=== PATIENT | male | born 1970 | race Caucasian/White ===

== ENCOUNTER 2017-06-13 05:05 | Emergency (ER) | payer OTHER ==
[~2017-06-13] VITALS: Ht 175.3 cm; Wt 81.8 kg
[2017-06-13] MEDS ORDERED: GABA-531 PO (05:11)
[2017-06-13] MEDS ORDERED: KETOROLAC TROMETHAMINE 60 MG/2 ML VIAL IM ONE (06:30)
[2017-06-13] MEDS ORDERED: CYCLOBENZAPRINE HCL 10 MG TABLET PO ONE (06:30)
[2017-06-13 07:20] LABS: APPEARANCE,URINE CLEAR (CLEAR); GLUCOSE, URINE (UA) NEGATIVE (NEGATIVE); KETONES,URINE 40 mg/dL (NEGATIVE); LEUKOCYTE ESTERASE ,URINE NEGATIVE (NEGATIVE); OCCULT BLOOD,URINE TRACE (NEGATIVE); PROTEIN,URINE NEGATIVE (NEGATIVE)
[2017-06-13 07:28] LABS: ADD UA MICROSCOPIC YES
[2017-06-13 07:30] LABS: RBC,URINE 0-2 /HPF (0-2); WBC,URINE 0-2 /HPF (0-5)
[2017-06-13 07:31] LABS: SQUAMOUS EPITHELIAL CELL,UR Rare /LPF (None Seen)
[2017-06-13 07:32] LABS: URINALYSIS COMMENT Rare Sperm seen.
[2017-06-13 07:38] VITALS: BP 115/80
== END 2017-06-13 08:15 | disposition home or self-care (01) ==
LOC: EMS 05:07
DX: M54.5 Low back pain (principal); G89.29 Other chronic pain; F17.210 Nicotine dependence, cigarettes, uncomplicated; I10 Essential (primary) hypertension; F15.10 Other stimulant abuse, uncomplicated; Z88.0 Allergy status to penicillin
CPT/HCPCS: 80307; 81001; 96372; 99284; J1885